=== PATIENT | female | born 1940 | race Caucasian/White ===

== ENCOUNTER → 2023-03-16 14:01 | Outpatient (REF) | payer MEDICARE, SELFPAY ==
--- NOTE | 2023-03-16 14:09 | CA_ITS ---
Transthoracic Echocardiogram Patient (Last, First, Middle): Dariela Grande, Gender: Female Date of : 1940 Age: 83 Procedure Date: 03/16/2023 Procedure Type: Transthoracic Echocardiogram Location: [facility] Height: 167.64 cm Weight: 83.01 kg BSA: 1.93 m2 Heart Rate: bpm BP: 145 / 80 mmHg Service Desk Team Lead: BETH Shanks MD: Sabrina Bloom MD Applications Manager: Ismael Pizano MD Symptoms: R06.02 SOB Study Quality: Adequate ECG Rhythm: Sinus Conclusions: - 1. Normal LV systolic function with LVEF of 60 65% with impaired relaxation filling pattern 2. Normal cardiac valvular Dopplers 3. Normal RV systolic pressure 4. Mildly dilated ascending aorta at 3.9 cm 5. No gross pericardial effusion Findings Left Ventricle Normal left ventricular size, thickness, and systolic function. The visually estimated ejection fraction is between 60-65%. Spectral Doppler is indicative of an impaired relaxation filling pattern. E/E prime ratio is between 8 and 15 consistent with indeterminate filling pressures. Right Ventricle Normal right ventricular cavity size and systolic function. Atria Both atria are normal in size. 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 Interatrial shunt cannot be excluded. Aortic Valve Normal aortic valve structure and function. There is no aortic valve stenosis. There is no aortic valve regurgitation. Mitral Valve There is mild anterior and posterior mitral leaflet thickening. There is mild mitral annular calcification. There is trace mitral valve regurgitation. There is no mitral valve stenosis. Pulmonic Valve The pulmonic valve was not well visualized. Tricuspid Valve Normal tricuspid valve structure. There is trace tricuspid valve regurgitation. The right ventricular systolic pressure is normal. The right ventricular systolic pressure is 22 mmHg. Normal right atrial pressure. There is no evidence of pulmonary hypertension. Great Vessels The pulmonary artery was not well visualized. There is mild dilatation of the ascending aorta measuring 3.90 cm. Venous The inferior vena cava is normal in size and collapses greater than 50% with inspiration. Pericardium/Pleural There is no evidence of pericardial effusion. Prior Study Comparison No prior study available for comparison. Measurements 2D Linear Measurements IVSd: 0.88 0.6-0.9/0.6-1.0 cm LVIDd: 4.63 3.9-5.3/4.2-5.9 cm LVIDd Index: 2.40 2.4-3.2/2.2-3.1 cm/m2 LVIDs: 3.45 2.0-3.6 cm LVPWd: 0.73 0.7-1.1 cm LA Diam: 3.70 2.7-3.8/3.0-4.0 cm LAIDs Index: 1.92 1.5-2.3 cm/m2 LV Mass: 149.35 67-162/88-224 g LV Mass Index: 77.38 43-95/49-115 g/m2 LVOT Diam: 2.00 3.0+(-)1.3 cm 2D Systolic Function EF 4C: 64.50 >55% EF 2C: 51.90 >55% EF BiP: 59.30 >55% Mitral Valve MV Pk E: 0.78 MV PK A: 0.93 MV Decel Time: 234.00 E/A: 0.80 E'Lateral: 8.92 E'Medial: 7.51 E/E' Med: 10.40 E/E' Lat: 8.70 PHT: 68.00 MVA PHT: 3.24 Decel [place]: 3.34 Aortic Valve AoV Pk Matthias: 1.09 AoV Mn Matthias: 0.83 AoV VTI: 0.30 AoV Pk Grad: 5.00 Aov Mn Grad: 3.00 TRESA Cont.VTI: 2.66 LVOT LVOT Pk Matthias: 1.03 LVOT Mn Matthias: 0.71 LVOT VTI: 0.25 LVOT Pk Grad: 4.00 LVOT Mn Grad: 2.00 LVOT Diam: 2.00 LVOT Area: 3.14 Diastolic Function MV Pk E: 0.78 MV Pk A: 0.93 E/A: 0.80 E'Medial: 7.51 E/E' Med: 10.40 E' Laterial: 8.92 E/E' Lat: 8.70 Right Ventricle TAPSE (mm): 21.20 TVS' Matthias: 10.00 Tricuspid Valve TR Pk Matthias: 2.20 TR Pk Grad: 19.00 RA Press: 3.00 RVSP: 22.00 Great Vessels Aorta Sinus of Valsalva: 3.80 2.0-3.5 cm Ao Asc: 3.90 2.1-3.4 cm Pulmonary Valve PV Pk Matthias: 0.68 Peak PV Grad: 2.00 Updated in Other Vendor System with Status of Final Ismael Pizano MD electronically signed on 03/16/2023 5:09:29 PM with status of Final
== END ==
LOC: HO.CARD 14:01
PROVIDERS: PCP Family Medicine; Visit Provider Family Medicine
DX: R06.02 Shortness of breath (principal)
CPT/HCPCS: 93306